=== PATIENT | female | born 2005 | race Caucasian/White ===

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

== ENCOUNTER 2023-02-09 00:58 | Emergency (ER) | payer OTHER ==
[2023-02-09 01:10] VITALS: BP 115/57; PULSE 73; RESP 16; TEMP 99.1; BMI 25.8
== END 2023-02-09 01:50 | disposition home or self-care (01) ==
LOC: FER 00:58
DX: J02.9 Acute pharyngitis, unspecified (principal); R50.9 Fever, unspecified; H92.09 Otalgia, unspecified ear; R05.9 Cough, unspecified; R09.3 Abnormal sputum; J40 Bronchitis, not specified as acute or chronic
CPT/HCPCS: 87651; 99283-25

== ENCOUNTER 2024-01-10 23:30 | Emergency (ER) | payer OTHER ==
[2024-01-10 23:49] VITALS: BP 114/64; PULSE 68; RESP 17; TEMP 97.7; BMI 27.8
[2024-01-11] MEDS ORDERED: FAMOTIDINE 20 MG/50 ML IVPB 20 MG/50 ML MG IVPB ONE (00:04)
[2024-01-11] MEDS ORDERED: MAG HYDROX/AL HYDROX/SIMETH 30 ML UNIT-DOSE CUP ONE (00:20)
[2024-01-11] MEDS: MAG HYDROX/AL HYDROX/SIMETH -MYLANTA- ORAL SUSPENSION PO ONE (00:22)
[2024-01-11] MEDS: FAMOTIDINE 20 MG/50 ML IVPB 20 MG/50 ML MG IVPB ONE (00:23)
[2024-01-11 00:48] LABS: BASO % 0.3 % (0-2.0); EOS % 2.6 % (0-4.5); HEMATOCRIT 39.4 % (32.4-45.2); HEMOGLOBIN 12.9 GM/dL (10.7-15.3); LYMPH % 30.8 % (8-40); MCH 27.8 pg (25.7-33.7); MCHC 32.8 g/dl (32.0-36.0); MEAN CELL VOLUME 84.8 fl (80-96); MEAN PLT VOLUME 9.4 fl (7.5-11.1); MONO % 6.3 % (3.8-10.2); PH,URINE 7.5 (5.0-8.0); PLATELET COUNT 278 10^3/uL (134-434); RBC 4.65 M/mm3 (3.60-5.2); RDW 12.9 % (11.6-15.6); URINE APPEARANCE CLEAR; URINE BILIRUBIN NEGATIVE (NEGATIVE); URINE COLOR YELLOW; URINE GLUCOSE (UA) NEGATIVE (NEGATIVE); URINE KETONE NEGATIVE (NEGATIVE); URINE LEUK ESTERASE NEGATIVE (NEGATIVE); URINE NITRITE NEGATIVE (NEGATIVE); URINE PROTEIN NEGATIVE (NEGATIVE); URINE UROBILINOGEN 0.2 mg/dL (0.2-1.0); WHITE BLOOD COUNT 9.1 K/mm3 (4.0-10.0)
[2024-01-11 00:51] LABS: HCG,QUALITATIVE URINE Negative
[2024-01-11 01:14] LABS: POTASSIUM 3.5 mmol/L (3.5-5.1)
[2024-01-11 01:18] LABS: ALBUMIN 4.2 g/dl (3.4-5.0); BLOOD UREA NITROGEN 10.5 mg/dL (7-18)
[2024-01-11 01:20] LABS: CALCIUM 9.8 mg/dL (8.5-10.1)
[2024-01-11 01:21] LABS: CREATININE 0.6 mg/dL (0.55-1.3)
[2024-01-11 01:22] LABS: BILIRUBIN,TOTAL 0.2 mg/dL (0.2-1)
== END 2024-01-11 01:53 | disposition home or self-care (01) ==
LOC: FER 23:30
PROC: 3E033GC Introduction of Other Therapeutic Substance into Peripheral Vein, Percutaneous Approach (ICD-10-PCS; principal; 2024-01-11)
DX: R10.13 Epigastric pain (principal)
CPT/HCPCS: 36415; 80053; 81003; 83690; 84703; 85025; 96365; 99284-25